=== PATIENT | male | born 1940 | race African-American/Black ===

== ENCOUNTER 2017-04-28 05:52 | Day surgery (SDC) | payer OTHER, BC ==
[2017-04-18 13:42] VITALS: BMI 30.4
[2017-04-28] MEDS ORDERED: BUPIVACAINE HCL/PF 2.5 MG/ML - 30 ML VIAL IJ ONE (07:02)
[2017-04-28] MEDS ORDERED: EPINEPHrine 1:1,000 1 MG/1 ML - 30ML VIAL (INJECTION) ONE (07:02)
[2017-04-28] MEDS ORDERED: PROPOFOL 20 ML ONE ×3 (08:27→09:34)
[2017-04-28] MEDS ORDERED: PHENYLEPHRINE HCL 10 MG/1 ML SINGLE DOSE VIAL ONE (08:31)
[2017-04-28] MEDS ORDERED: LIDOCAINE HCL/PF 2% SDV 5ML VIAL ONE (08:50)
[2017-04-28] MEDS ORDERED: ONDANSETRON 4 MG/2 ML VIAL ONE (09:22)
[2017-04-28] MEDS ORDERED: DEXAMETHASONE SOD PHOSPHATE 4 MG/1 ML VIAL ONE (09:22)
[2017-04-28] MEDS ORDERED: BUPIVACAINE HCL/PF 0.25% (2.5MG/ML) 10 ML VIAL IJ ONE (09:51)
[2017-04-28] MEDS ORDERED: oxyCODONE HCL 5 MG TABLET PO PRN (10:14)
[2017-04-28] MEDS ORDERED: LACTATED RINGERS SOLUTION 1,000 ML IV SCH (10:15)
[2017-04-28] MEDS ORDERED: KETOROLAC TROMETHAMINE 30 MG/1 ML VIAL ONE (10:36)
[2017-04-28 15:05] VITALS: BP 153/89; PULSE 54; TEMP 97.9
--- NOTE | 2017-05-02 15:25 | OP ---
DATE OF OPERATION: 04/28/2017 SITE: [facility] SURGEON: Mindy Mcclain MD ASSISSTANT: JACKSON Adam PREOPERATIVE DIAGNOSES: 1. Right knee medial and lateral meniscal tears. 2. Right knee cartilage injury. 3. Right knee synovitis. 4. Stress fracture, right knee, lateral tibial plateau. POSTOPERATIVE DIAGNOSES: 1. Right knee medial and lateral meniscal tears. 2. Right knee cartilage injury. 3. Right knee synovitis. 4. Stress fracture, right knee, lateral tibial plateau. PROCEDURE: 1. Right knee arthroscopy with partial meniscectomy of medial and lateral meniscus. 2. Right knee arthroscopy with chondroplasty and abrasion-plasty. 3. Right knee arthroscopy with synovectomy / major. 4. Arthroscopically-assisted repair of stress fracture using the Accufill injectable technique. FINDINGS: 1. Medial meniscus posterior horn tear /minor. 2. Lateral meniscus central tear with posterior one-half extension. 3. Synovitis, patellofemoral and medial lateral and diffuse grade 2-3 cartilage injury from tibial plateau. 4. ACL and PCL intact. 5. Antegrade 4 cartilage injury, lateral femoral condyle, with grade 2-3 changes, lateral tibial plateau. 6. 2-4 cartilage injury, patellofemoral trochlea and patellofemoral joint. 7. MRI examination with stress fracture and bone marrow edema, lateral tibial plateau, with corresponding softness and damaged cartilage on the arthroscopic view. DESCRIPTION OF PROCEDURE: Informed consent was obtained the patient was taken to the operating room where the right lower extremity was prepped and draped in a sterile fashion. Tourniquet was placed on the upper thigh but not inflated. Using standard arthroscopic technique, a lateral incision and portal were made which allowed for introduction of the camera into the suprapatellar bursa. This was then taken to the medial joint line where under direct visualization a medial incision and portal were made. Excessive synovium noted in the medial, lateral, patellofemoral and notch area was removed by up-biter shaver and Bovie cautery. This was found to bring inflammatory tissue into the joint surface, a source of joint pain and dysfunction. Probing of the medial and lateral meniscus found tears described in the findings. These were removed with an up-biter, shaver, and taken back to stable rim. Grade 2-3 degenerative changes were treated with chondroplasty, removing all flaking surfaces with low setting Bovie used along the periphery. Grade 4 changes were treated with abrasion-plasty. All areas of the knee were once again re-examined. The knee was then drained. A single suture was placed on all portals. Sterile dressing was placed. The patient was transferred to the recovery room. ADDENDUM: Due to the area of the patient's pain on clinical examination, the MRI findings as well as the arthroscopic findings, the stress fracture was found to be symptomatic to the patient. Under C-arm fluoroscopy, a guidewire was placed into the central portion of the defect. This would then allow filling of the defect and treating the fracture with a calcium composite similar to a biologic cement. This was injected under C-arm fluoroscopy to make sure that it stayed in the bone, and a camera was placed in the joint to make sure there was no extravasation. This was then held in place for 10 minutes and the needle was removed to prevent extravasation. All areas of the knee and skin were reexamined. Portals were closed with 3-0 nylon, percutaneous incision was closed with 3-0 nylon as well. Sterile dressings were placed. The patient was transferred to the recovery room without complications. MINDY MCCLAIN M.D. [id number]
== END 2017-04-28 13:10 | disposition home or self-care (01) ==
LOC: FASU 05:52
PROVIDERS: ATTEND Orthopaedic Surgery
PROC: 0SBC4ZZ Excision of Right Knee Joint, Percutaneous Endoscopic Approach (ICD-10-PCS; 2017-04-28)
PROC: 0SBC4ZZ Excision of Right Knee Joint, Percutaneous Endoscopic Approach (ICD-10-PCS; 2017-04-28)
PROC: [UNRECOGNIZED PROCEDURE] (2017-04-28)
PROC: 0SBC4ZZ Excision of Right Knee Joint, Percutaneous Endoscopic Approach (ICD-10-PCS; principal; 2017-04-28 08:30)
DX: S83.241A Other tear of medial meniscus, current injury, right knee, initial encounter (principal); S83.281A Other tear of lateral meniscus, current injury, right knee, initial encounter; S83.8X1A Sprain of other specified parts of right knee, initial encounter; M65.861 Other synovitis and tenosynovitis, right lower leg; M84.361A Stress fracture, right tibia, initial encounter for fracture; X58.XXXA Exposure to other specified factors, initial encounter; Y93.9 Activity, unspecified; Y92.9 Unspecified place or not applicable
CPT/HCPCS: 73560-TC-RT; 76000-TC; 94760